=== PATIENT | male | born 1965 | race Caucasian/White ===

== ENCOUNTER 2020-01-18 21:41 | Inpatient (IN) | payer MEDICAID ==
[~2020-01-18] VITALS: Ht 175.3 cm; Wt 90.9 kg
[~2020-01-18 21:41] MED LIST: LISI40TA4 PO
[2020-01-18 22:44] LABS: BASOPHILS % (AUTO) 0.5 % (0-1); EOSINOPHILS % (AUTO) 0 % (0-6); HEMATOCRIT 37.2 % (42.0-52.0); LYMPHOCYTES # (AUTO) 0.9 X10'3 (1.1-4.8); LYMPHOCYTES % (AUTO) 26.4 % (21-51); MEAN CORPUSCULAR HEMOGLOBIN 36.9 PG (27.0-31.0); MEAN CORPUSCULAR HGB CONC 34.8 g/dL (33.0-36.5); MEAN CORPUSCULAR VOLUME 106.1 FL (78-98); MEAN PLATELET VOLUME 7.7 FL (7.4-10.4); MONOCYTES # (AUTO) 0.3 X10'3 (0-0.9); MONOCYTES % (AUTO) 10.2 % (2-12); NEUTROPHILS # (AUTO) 2.2 X10'3 (1.8-7.7); NEUTROPHILS % (AUTO) 62.9 % (42-75); RED BLOOD COUNT 3.51 X10'6 (4.70-6.10); RED CELL DISTRIBUTION WIDTH 13.4 % (11.5-14.5); WHITE BLOOD COUNT 3.4 X10'3 (4.5-11.0)
[2020-01-18 22:48] LABS: PLATELET COUNT 48 X10'3 (140-440)
--- NOTE | 2020-01-18 22:52 | NUR ---
DR CABRERA NOTIFIED OF CRITICAL PLATELET LEVEL
[2020-01-18 22:58] LABS: ALANINE AMINOTRANSFERASE 33 U/L (12-78); ALBUMIN 3.8 G/DL (3.4-5.0); ALKALINE PHOSPHATASE 107 IU/L (46-116); ANION GAP 11 (8-16); ASPARTATE AMINO TRANSFERASE 60 U/L (10-37); BILIRUBIN,TOTAL 2.4 MG/DL (0.1-1.0); BLOOD UREA NITROGEN 11 MG/DL (7-18); BUN/CREATININE RATIO 14.5 (5.4-32.0); CALCIUM 9.3 MG/DL (8.5-10.1); CHLORIDE 102 MMOL/L (99-107); CREATININE 0.76 MG/DL (0.60-1.10); GLUCOSE 137 MG/DL (70-104); LIPASE 178 U/L (73-393); POTASSIUM 3.7 MMOL/L (3.5-5.1); SODIUM 139 MMOL/L (135-145); TOTAL CARBON DIOXIDE 25.7 MMOL/L (24-32); TOTAL PROTEIN 7.6 G/DL (6.4-8.2); eGFR > 90 ML/MIN
[2020-01-18] MEDS ORDERED: octreotide inj. 1,250 MCG in normal saline 250ml IV soln 250 ML IV ONE (23:45)
[2020-01-18] MEDS ORDERED: magnesium 2GM in 50ml NS 50 ML IV ONE (23:45)
[2020-01-18] MEDS ORDERED: pantoprazole 40 MG vial IV ONE (23:45)
[2020-01-18] MEDS ORDERED: phenobarbital inj 260 MG in normal saline 100ml IV soln 100 ML IV ONE (23:45)
[2020-01-18] MEDS ORDERED: famotidine/PF 10 mg/ml inj IV ONE (23:45)
[2020-01-18] MEDS ORDERED: thiamine inj. 100 MG in normal saline 100ml IV soln 99 ML IV ONE (23:45)
[2020-01-18] MEDS ORDERED: normal saline 1000ML IV soln IVB ONE (23:45)
[2020-01-18] MEDS ORDERED: ondansetron/PF 4mg/2ml inj IV ONE (23:45)
[2020-01-18 23:55] LABS: ETHANOL < 0.010 GM/DL (0.0-0.010); MAGNESIUM 1.5 MG/DL (1.5-2.4)
[2020-01-18 23:58] LABS: PARTIAL THROMBOPLASTIN TIME 31 SECONDS (22-32)
[2020-01-19] VITALS (9 sets, daily range): BP systolic 117–148; BP diastolic 71–83
[2020-01-19 00:44] LABS: CLARITY,URINE CLEAR (Clear); COLOR,URINE YELLOW (Yellow); GLUCOSE, URINE NEGATIVE (Neg); KETONES,URINE 15 mg/dl (Neg); LEUKOCYTE ESTERASE ,URINE NEGATIVE (Neg); NITRITES, URINE NEGATIVE (Neg); OCCULT BLOOD,URINE NEGATIVE (Neg); PH,URINE 7.5 (4.8-8.0); PROTEIN,URINE NEGATIVE (Neg)
[2020-01-19 00:46] LABS: UA COLLECTION TYPE CLN CATCH MIDSTREAM
[2020-01-19] MEDS: pantoprazole 40MG/NS 100ML BAG 100 ML IV SCH ×4 (01:19→21:34)
[2020-01-19 02:02] LABS: OCCULT BLOOD STOOL POSITIVE (Neg)
--- NOTE | 2020-01-19 02:10 | NUR ---
CONTACT INFO: DANISH (S/O) [phone]
[2020-01-19] MEDS ORDERED: phenobarbital inj 130 MG in normal saline 100ml IV soln 100 ML IV ONE ×2 (02:25→03:20)
[2020-01-19] MEDS ORDERED: phenobarbital inj 130 MG in normal saline 250ml IV soln 250 ML IV ONE (02:25)
[2020-01-19] MEDS ORDERED: ondansetron/PF 4mg/2ml inj IV PRN (02:55)
[2020-01-19] MEDS ORDERED: LORazepam 2 mg/ml vial IV PRN (02:55)
[2020-01-19] MEDS ORDERED: thiamine 100mg/ml 2ml inj. IV ONE (02:55)
[2020-01-19] MEDS ORDERED: PANT-47 PO (03:14)
--- NOTE | 2020-01-19 04:16 | NUR ---
PT PLACED ON HOSPITAL BED FOR COMFORT.
[2020-01-19] MEDS: normal saline 1000ml 1,000 ML IV SCH ×3 (05:30→22:53)
[2020-01-19] MEDS ORDERED: pantoprazole 40 MG vial IV SCH (08:00)
[2020-01-19] MEDS ORDERED: magnesium 4gm in 100ml NS 100 ML IV PRN (08:55)
[2020-01-19] MEDS ORDERED: magnesium Cl slow-release 64mg tablet PO PRN (08:55)
[2020-01-19] MEDS ORDERED: potassium Cl 20 mEq SR tablet PO PRN ×2 (08:55)
[2020-01-19] MEDS: K and/or MAG REPLACEMENT MC SCH ×2 (08:55→20:00)
[2020-01-19] MEDS ORDERED: potassium CL 10mEq/100ml bag 100 ML IV PRN (08:55)
--- NOTE | 2020-01-19 11:37 | NUR ---
received report from [facility]
--- NOTE | 2020-01-19 12:41 | NUR ---
Pt's phone continuous process tanner rotary drum delivered from ER, and plugged in at hob w/in pt's reach.
--- NOTE | 2020-01-19 14:13 | NUR ---
pt taken to Gi lab
[2020-01-19] MEDS ORDERED: MIDAZolam 5mg/5ml vial ONE (14:24)
[2020-01-19] MEDS ORDERED: fentaNYL/PF 50MCG/1 ML 2ML syringe ONE (14:24)
[2020-01-19] MEDS ORDERED: LIDOcaine Viscous 15ml cup ONE (14:25)
--- NOTE | 2020-01-19 18:36 | NUR ---
Problems reprioritized. Patient report given, questions answered & plan of care reviewed with Radha Yoo
--- NOTE | 2020-01-19 18:55 | NUR ---
Patient in room [facility]. I have received report from NE[facility] FOSTER and had the opportunity to ask questions and assume patient care. Addendum: 01/19/20 at 1856 by Rosa Caraballo RN Amended: Links added.
[2020-01-20] VITALS: BP 123/62
[2020-01-20] MEDS: pantoprazole 40MG/NS 100ML BAG 100 ML IV SCH ×3 (02:00→10:16)
[2020-01-20] MEDS: normal saline 1000ml 1,000 ML IV SCH (05:21)
[2020-01-20 05:34] LABS: BASOPHILS % (AUTO) 0.6 % (0-1); EOSINOPHILS # (AUTO) 0.1 X10'3 (0-0.9); EOSINOPHILS % (AUTO) 2.5 % (0-6); HEMATOCRIT 31.5 % (42.0-52.0); HEMOGLOBIN 11.2 g/dl (14.0-17.9); LYMPHOCYTES % (AUTO) 26.8 % (21-51); MEAN CORPUSCULAR HEMOGLOBIN 37.4 PG (27.0-31.0); MEAN CORPUSCULAR HGB CONC 35.4 g/dL (33.0-36.5); MEAN CORPUSCULAR VOLUME 105.9 FL (78-98); MEAN PLATELET VOLUME 8.6 FL (7.4-10.4); MONOCYTES # (AUTO) 0.3 X10'3 (0-0.9); MONOCYTES % (AUTO) 9.1 % (2-12); NEUTROPHILS # (AUTO) 2.3 X10'3 (1.8-7.7); RED BLOOD COUNT 2.98 X10'6 (4.70-6.10); RED CELL DISTRIBUTION WIDTH 13.8 % (11.5-14.5); WHITE BLOOD COUNT 3.8 X10'3 (4.5-11.0)
[2020-01-20 05:59] LABS: ALANINE AMINOTRANSFERASE 28 U/L (12-78); ALBUMIN/GLOBULIN RATIO 0.9 (1.1-1.5); ALKALINE PHOSPHATASE 75 IU/L (46-116); ANION GAP 8 (8-16); ASPARTATE AMINO TRANSFERASE 57 U/L (10-37); BILIRUBIN,TOTAL 2.6 MG/DL (0.1-1.0); BLOOD UREA NITROGEN 14 MG/DL (7-18); BUN/CREATININE RATIO 14.4 (5.4-32.0); CALCIUM 7.9 MG/DL (8.5-10.1); CHLORIDE 103 MMOL/L (99-107); CREATININE 0.97 MG/DL (0.60-1.10); GLUCOSE 116 MG/DL (70-104); MAGNESIUM 1.8 MG/DL (1.5-2.4); PHOSPHORUS 2.9 MG/DL (2.3-4.5); POTASSIUM 3.8 MMOL/L (3.5-5.1); SODIUM 136 MMOL/L (135-145); TOTAL CARBON DIOXIDE 24.8 MMOL/L (24-32); TOTAL PROTEIN 6.2 G/DL (6.4-8.2); eGFR 80 ML/MIN
--- NOTE | 2020-01-20 06:35 | NUR ---
Problems reprioritized. Patient report given, questions answered & plan of care reviewed with NEIL Flowers.
[2020-01-20 07:01] LABS: PLATELET COUNT 48 X10'3 (140-440)
--- NOTE | 2020-01-20 07:15 | NUR ---
MD notified of low platelets of 48, patient alert and oriented, asymptomatic, no action taken.
[2020-01-20 08:00] VITALS: BP 119/67
[2020-01-20] MEDS: K and/or MAG REPLACEMENT MC SCH (08:00)
[2020-01-20] MEDS ORDERED: lisinopril 20mg tablet PO SCH (08:00)
[2020-01-20 11:00] VITALS: BP 113/68
[2020-01-20] MEDS ORDERED: oseltamivir phos 75mg capsule PO ONE (13:55)
[2020-01-20] MEDS ORDERED: FOLI0.4T2 PO (15:09)
[2020-01-20] MEDS ORDERED: ALBU8.5H8 IH (15:09)
[2020-01-20] MEDS ORDERED: TAM75C PO (15:09)
[2020-01-20] MEDS ORDERED: MULT-1085 PO (15:09)
[2020-01-20] MEDS ORDERED: PANT40TA4 PO (15:09)
[2020-01-20] MEDS ORDERED: THIA50TA10 PO (15:09)
[2020-01-20] MEDS ORDERED: LEVO500T89 PO (15:09)
--- NOTE | 2020-01-20 16:00 | NUR ---
Patient alert, oriented, and appropriate for discharge. Patient discharged home into private vehicle into the care of male older family member. Patient IV's removed, no tele. Patient verbalized understanding of discharge instructions and will follow up with primary care provider per instructions. Patient left with all belongings.
[2020-01-20] MEDS ORDERED: oseltamivir phos 75mg capsule PO SCH (20:00)
== END 2020-01-20 15:54 | disposition home or self-care (01) | DRG 243 ==
LOC: ER 21:41 → ED HOLD 01-19 02:53 → UNDOADMIN 01-19 03:01 → EDBEDREQ 01-19 11:10 → ED HOLD 01-19 11:59 → SUR 3N 01-19 11:59
PROVIDERS: ADMIT Internal Medicine; ATTEND Family Medicine
PROC: 30233R1 Transfusion of Nonautologous Platelets into Peripheral Vein, Percutaneous Approach (ICD-10-PCS; 2020-01-19)
PROC: 0DB68ZZ Excision of Stomach, Via Natural or Artificial Opening Endoscopic (ICD-10-PCS; principal; 2020-01-20)
PROC: 0DB48ZX Excision of Esophagogastric Junction, Via Natural or Artificial Opening Endoscopic, Diagnostic (ICD-10-PCS; 2020-01-20)
DX: K22.70 Barrett's esophagus without dysplasia (principal); D69.6 Thrombocytopenia, unspecified; I85.10 Secondary esophageal varices without bleeding; F10.239 Alcohol dependence with withdrawal, unspecified; Y90.9 Presence of alcohol in blood, level not specified; Z95.1 Presence of aortocoronary bypass graft; F41.9 Anxiety disorder, unspecified; K21.9 Gastro-esophageal reflux disease without esophagitis; Z80.0 Family history of malignant neoplasm of digestive organs; K44.9 Diaphragmatic hernia without obstruction or gangrene; K76.6 Portal hypertension; K31.89 Other diseases of stomach and duodenum; J40 Bronchitis, not specified as acute or chronic; D64.9 Anemia, unspecified; I10 Essential (primary) hypertension; K21.0 Gastro-esophageal reflux disease with esophagitis; K29.70 Gastritis, unspecified, without bleeding; Z82.49 Family history of ischemic heart disease and other diseases of the circulatory system; J10.1 Influenza due to other identified influenza virus with other respiratory manifestations
CPT/HCPCS: 36415; 36430; 43239; 71045; 80053; 80320; 81003; 82272; 82948; 83690; 83735; 84100; 85025; 85610; 85730; 86885; 86900; 86901; 87081; 87502; 87503; 93005; 96365; 96375; 99152; 99285; A4620; C1773; C9113; G0378; J2250; J2354; J2405; J2560; J3010; J3411; J3475; J3490; J7030; J7040; J7050; P9035

== ENCOUNTER 2020-09-10 15:08 | Emergency (ER) | payer MEDICAID ==
[~2020-09-10] VITALS: Ht 175.3 cm; Wt 84.1 kg
[~2020-09-10 15:08] MED LIST changes: +ALBU8.5H8 IH; +MULT-1085 PO; +PANT40TA54 PO; +TAM75C PO; +THIA50TA10 PO
[2020-09-10 16:03] LABS: BASOPHILS % (AUTO) 0.3 % (0-1); EOSINOPHILS # (AUTO) 0.1 X10'3 (0-0.9); EOSINOPHILS % (AUTO) 0.8 % (0-6); HEMATOCRIT 32.4 % (42.0-52.0); HEMOGLOBIN 11.2 g/dl (14.0-17.9); LYMPHOCYTES # (AUTO) 2.4 X10'3 (1.1-4.8); MEAN CORPUSCULAR HEMOGLOBIN 37.9 PG (27.0-31.0); MEAN CORPUSCULAR HGB CONC 34.7 g/dL (33.0-36.5); MEAN CORPUSCULAR VOLUME 109.2 FL (78-98); MEAN PLATELET VOLUME 8.6 FL (7.4-10.4); MONOCYTES # (AUTO) 0.8 X10'3 (0-0.9); MONOCYTES % (AUTO) 10.4 % (2-12); NEUTROPHILS # (AUTO) 4.7 X10'3 (1.8-7.7); NEUTROPHILS % (AUTO) 58.5 % (42-75); PLATELET COUNT 180 X10'3 (140-440); RED BLOOD COUNT 2.97 X10'6 (4.70-6.10); RED CELL DISTRIBUTION WIDTH 21.6 % (11.5-14.5); WHITE BLOOD COUNT 8.1 X10'3 (4.5-11.0)
[2020-09-10 16:05] LABS: CLARITY,URINE CLEAR (Clear); COLOR,URINE AMBER (Yellow); GLUCOSE, URINE NEGATIVE (Neg); KETONES,URINE NEGATIVE (Neg); LEUKOCYTE ESTERASE ,URINE NEGATIVE (Neg); NITRITES, URINE NEGATIVE (Neg); OCCULT BLOOD,URINE NEGATIVE (Neg); PROTEIN,URINE NEGATIVE (Neg)
[2020-09-10 16:12] LABS: ALANINE AMINOTRANSFERASE 73 U/L (12-78); ALBUMIN 2.6 G/DL (3.4-5.0); ALKALINE PHOSPHATASE 196 IU/L (46-116); ANION GAP 7 (8-16); ASPARTATE AMINO TRANSFERASE 117 U/L (10-37); BLOOD UREA NITROGEN 12 MG/DL (7-18); BUN/CREATININE RATIO 11.5 (5.4-32.0); CALCIUM 8.9 MG/DL (8.5-10.1); CHLORIDE 102 MMOL/L (99-107); CREATININE 1.04 MG/DL (0.60-1.10); GLUCOSE 115 MG/DL (70-104); POTASSIUM 4.3 MMOL/L (3.5-5.1); SODIUM 136 MMOL/L (135-145); TOTAL CARBON DIOXIDE 26.9 MMOL/L (24-32); eGFR 74 ML/MIN
[2020-09-10 16:14] LABS: UA COLLECTION TYPE CLN CATCH MIDSTREAM
[2020-09-10 16:27] LABS: ALBUMIN/GLOBULIN RATIO 0.6 (1.1-1.5); TOTAL PROTEIN 7.3 G/DL (6.4-8.2)
[2020-09-10 16:56] LABS: PLATELET ESTIMATE NORMAL
[2020-09-10 17:10] LABS: ANISOCYTOSIS 3+; POIKILOCYTOSIS 1+; SPHEROCYTES FEW; TARGET CELLS FEW
[2020-09-10 17:11] LABS: ELLIPTOCYTES 2+; SCHISTOCYTES 1+; TEAR DROP CELLS 1+
[2020-09-10] MEDS: diatr meglu/diatrizoate 30ml oral sol.-(3 dose) bottle PO SCH ×3 (17:37→19:36)
[2020-09-10] MEDS ORDERED: piperacillin/tazo 3.375gm/50ml 50 ML IV ONE (20:50)
[2020-09-10 21:15] VITALS: BP 116/69
== END 2020-09-10 22:41 | disposition home or self-care (01) ==
LOC: ER 15:09
DX: K74.60 Unspecified cirrhosis of liver (principal); R18.8 Other ascites; N50.89 Other specified disorders of the male genital organs; I10 Essential (primary) hypertension; K21.9 Gastro-esophageal reflux disease without esophagitis; Z95.1 Presence of aortocoronary bypass graft; Z79.899 Other long term (current) drug therapy
CPT/HCPCS: 36415; 74176; 76705; 76870; 80053; 81003; 83605; 84145; 85008; 85025; 87040; 93976; 96365; 99285; J2543; Q9963; 96366

== ENCOUNTER 2022-06-22 07:55 | Emergency (ER) | payer MEDICAID ==
[~2022-06-22] VITALS: Ht 175.3 cm; Wt 72.7 kg
[~2022-06-22 07:55] MED LIST changes: +ALBU8.5H17 IH; -ALBU8.5H8 IH; +LISI40TA13 PO; -LISI40TA4 PO
--- NOTE | 2022-06-22 08:35 | NUR ---
REQUESTED DR. BENITEZ TO BEDSIDE FOR ASSESSMENT AND ORDERS. PT HAS MULTIPLE BRUISING TO HEAD AND FACE. BRUISING ALL OVER BILAT LEGS AND ARMS. PT COMPLAINS OF HEADACHE.
[2022-06-22 10:08] LABS: BILIRUBIN,DIRECT 4.5 MG/DL (0-0.3); ETHANOL 0.275 GM/DL (0.0-0.010)
[2022-06-22 11:00] VITALS: BP 116/69
[2022-06-22 11:27] LABS: ALANINE AMINOTRANSFERASE 42 U/L (12-78); ALKALINE PHOSPHATASE 193 IU/L (46-116); ANION GAP 14 (8-16); ASPARTATE AMINO TRANSFERASE 133 U/L (10-37); BILIRUBIN,TOTAL 10.3 MG/DL (0.1-1.0); BLOOD UREA NITROGEN 5 MG/DL (7-18); BUN/CREATININE RATIO 9.3 (5.4-32.0); CALCIUM 8.5 MG/DL (8.5-10.1); CHLORIDE 102 MMOL/L (99-107); CREATININE 0.54 MG/DL (0.60-1.10); GLUCOSE 147 MG/DL (70-104); LIPASE 173 U/L (73-393); MAGNESIUM 1.7 MG/DL (1.5-2.4); POTASSIUM 3.1 MMOL/L (3.5-5.1); SODIUM 140 MMOL/L (135-145); TOTAL CARBON DIOXIDE 24.2 MMOL/L (24-32); eGFR > 90 ML/MIN
[2022-06-22 11:31] LABS: ALBUMIN/GLOBULIN RATIO 0.9 (1.1-1.5); PHOSPHORUS 3.6 MG/DL (2.3-4.5); TOTAL PROTEIN 6.4 G/DL (6.4-8.2)
[2022-06-22 11:34] LABS: BASOPHILS # (AUTO) 0.1 X10'3 (0-0.2); BASOPHILS % (AUTO) 1.7 % (0-1); EOSINOPHILS # (AUTO) 0.1 X10'3 (0-0.9); EOSINOPHILS % (AUTO) 2.2 % (0-6); HEMATOCRIT 30.8 % (42.0-52.0); HEMOGLOBIN 10.8 g/dl (14.0-17.9); LYMPHOCYTES # (AUTO) 1.1 X10'3 (1.1-4.8); LYMPHOCYTES % (AUTO) 30.6 % (21-51); MEAN CORPUSCULAR HEMOGLOBIN 37.9 PG (27.0-31.0); MEAN CORPUSCULAR HGB CONC 35.1 g/dL (33.0-36.5); MEAN CORPUSCULAR VOLUME 108.2 FL (78-98); MEAN PLATELET VOLUME 6.8 FL (7.4-10.4); MONOCYTES # (AUTO) 0.6 X10'3 (0-0.9); MONOCYTES % (AUTO) 15.3 % (2-12); NEUTROPHILS # (AUTO) 1.8 X10'3 (1.8-7.7); NEUTROPHILS % (AUTO) 50.2 % (42-75); PLATELET COUNT 57 X10'3 (140-440); RED BLOOD COUNT 2.85 X10'6 (4.70-6.10); RED CELL DISTRIBUTION WIDTH 18.5 % (11.5-14.5); WHITE BLOOD COUNT 3.7 X10'3 (4.5-11.0)
[2022-06-22] MEDS ORDERED: POTASSIUM BICARB 20meq eff tab 20 MEQ TABLET.EFF PO ONE (11:50)
--- NOTE | 2022-06-22 12:53 | NUR ---
PT TO LEAVE AMA. PT WAS PROVIDED WITH A WALKER AND EDUCATION OF PROPER USE PROVIDED. PT WAS EDUCATED ON RISKS OF LEAVING THIS ER, INCLUDING CONTINUING TO FALL, WORSENING LIVER FAILURE AND POTENTIAL FOR BLEEDING/HEMORRHAGE. PT VERBALIZED UNDERSTANDING AND MAINTAINED DECISION TO LEAVE.
== END 2022-06-22 13:01 | disposition left against medical advice (07) ==
LOC: ER 07:56
DX: E87.6 Hypokalemia (principal); K72.90 Hepatic failure, unspecified without coma; R42 Dizziness and giddiness; I10 Essential (primary) hypertension; K21.9 Gastro-esophageal reflux disease without esophagitis
CPT/HCPCS: 36415; 70450; 70486; 73060; 73090; 73560; 80053; 80320; 82140; 82248; 83690; 83735; 84100; 85025; 85610; 99285

== ENCOUNTER 2022-08-08 08:04 | Emergency (ER) | payer MEDICAID ==
[~2022-08-08] VITALS: Ht 175.3 cm; Wt 72.7 kg
[2022-08-08 10:27] LABS: BASOPHILS # (AUTO) 0.1 X10'3 (0-0.2); BASOPHILS % (AUTO) 1.3 % (0-1); EOSINOPHILS # (AUTO) 0.1 X10'3 (0-0.9); EOSINOPHILS % (AUTO) 1.5 % (0-6); HEMATOCRIT 27.5 % (42.0-52.0); HEMOGLOBIN 9.9 g/dl (14.0-17.9); MEAN CORPUSCULAR HEMOGLOBIN 43.7 PG (27.0-31.0); MEAN CORPUSCULAR HGB CONC 35.8 g/dL (33.0-36.5); MEAN CORPUSCULAR VOLUME 121.9 FL (78-98); MEAN PLATELET VOLUME 7.3 FL (7.4-10.4); MONOCYTES # (AUTO) 0.7 X10'3 (0-0.9); MONOCYTES % (AUTO) 14.8 % (2-12); NEUTROPHILS # (AUTO) 2.7 X10'3 (1.8-7.7); NEUTROPHILS % (AUTO) 60.4 % (42-75); PLATELET COUNT 67 X10'3 (140-440); RED BLOOD COUNT 2.26 X10'6 (4.70-6.10); RED CELL DISTRIBUTION WIDTH 17.3 % (11.5-14.5); WHITE BLOOD COUNT 4.5 X10'3 (4.5-11.0)
[2022-08-08] MEDS ORDERED: SPIR100T5 PO ×2 (10:27→11:39)
[2022-08-08] MEDS ORDERED: FURO40TA4 PO (10:27)
[2022-08-08 10:30] LABS: ALANINE AMINOTRANSFERASE 34 U/L (12-78); ALBUMIN 2.6 G/DL (3.4-5.0); ALKALINE PHOSPHATASE 196 IU/L (46-116); ANION GAP 11 (8-16); ASPARTATE AMINO TRANSFERASE 103 U/L (10-37); BILIRUBIN,TOTAL 12.9 MG/DL (0.1-1.0); BLOOD UREA NITROGEN 5 MG/DL (7-18); BUN/CREATININE RATIO 8.6 (5.4-32.0); CALCIUM 7.8 MG/DL (8.5-10.1); CHLORIDE 97 MMOL/L (99-107); CREATININE 0.58 MG/DL (0.60-1.10); GLUCOSE 182 MG/DL (70-104); SODIUM 133 MMOL/L (135-145); TOTAL CARBON DIOXIDE 24.8 MMOL/L (24-32); eGFR > 90 ML/MIN
[2022-08-08 10:32] LABS: ALBUMIN/GLOBULIN RATIO 0.8 (1.1-1.5); POTASSIUM 3.7 MMOL/L (3.5-5.1); TOTAL PROTEIN 5.7 G/DL (6.4-8.2)
[2022-08-08] MEDS ORDERED: spironolactone 50 MG tablet PO STA (10:34)
[2022-08-08] MEDS ORDERED: furosemide 20MG tablet PO ONE (10:35)
[2022-08-08 10:37] LABS: COLOR,URINE AMBER (Yellow); UA COLLECTION TYPE URINAL
[2022-08-08 10:38] LABS: CLARITY,URINE SLIGHTLY CLOUDY (Clear)
[2022-08-08 10:39] LABS: BACTERIA,URINE FEW /HPF (Neg); MUCUS STRANDS FEW /LPF (Neg); RBC,URINE NONE SEEN /HPF (0-2); SQUAMOUS EPITHELIAL CELL,UR FEW /LPF (FEW); WBC,URINE 0-4 /HPF (0-4)
[2022-08-08 10:45] LABS: PLATELET ESTIMATE DECREASED
[2022-08-08 10:46] LABS: ANISOCYTOSIS 1+; POLYCHROMASIA 1+; SPHEROCYTES 1+
[2022-08-08 10:47] LABS: ACANTHOCYTES 1+; BURR CELLS 2+; SCHISTOCYTES FEW; TARGET CELLS FEW
[2022-08-08 11:00] VITALS: BP 101/75
[2022-08-08] MEDS ORDERED: CLOT15CR10 TOP (11:37)
[2022-08-08] MEDS ORDERED: FURO-150 PO (11:39)
--- NOTE | 2022-08-08 11:54 | NUR ---
Pt and caregiver given and understands d/c instructions. IV d/c'd, catheter was intact. Ambulatory with a slow gait.
== END 2022-08-08 11:56 | disposition home or self-care (01) ==
LOC: ER 08:05
DX: N43.3 Hydrocele, unspecified (principal); B37.2 Candidiasis of skin and nail; K74.60 Unspecified cirrhosis of liver; K21.9 Gastro-esophageal reflux disease without esophagitis; I10 Essential (primary) hypertension; F41.9 Anxiety disorder, unspecified; Z79.899 Other long term (current) drug therapy; Z79.1 Long term (current) use of non-steroidal anti-inflammatories (NSAID)
CPT/HCPCS: 36415; 80053; 81001; 85008; 85025; 99284